=== PATIENT | female | born 1990 | race African-American/Black ===

== ENCOUNTER 2016-12-03 08:33 | Emergency (ER) | payer MEDICAID | END 2016-12-03 10:41 | disposition home or self-care (01) | LOC: D.ER 08:33 | DX: J01.90 Acute sinusitis, unspecified (principal) ==

== ENCOUNTER 2017-09-12 08:12 | Emergency (ER) | payer MEDICAID ==
[2017-09-12 08:54] LABS: APPEARANCE HAZY (CLEAR); BACTERIA MANY /hpf (NONE SEEN); BILIRUBIN NEGATIVE (NEGATIVE); COLOR YELLOW (YELLOW); GLUCOSE NEGATIVE (NEGATIVE); KETONE NEGATIVE (NEGATIVE); NITRITE NEGATIVE (NEGATIVE); PROTEIN 3+ mg/dL (NEGATIVE); RED CELLS - URINE 0-5 /hpf (0-5); SPECIFIC GRAVITY 1.015 (1.005-1.020); UROBILINOGEN NORMAL (NORMAL)
[2017-09-12 08:55] LABS: BASOPHILS 0.3 % (0-2); EOSINOPHILS 4.3 % (0-7); HEMATOCRIT 37.3 % (36.0-48.0); HEMOGLOBIN 11.8 g/dL (12-16); LYMPHOCYTES 39.5 % (15-50); MCH 26.8 pg (26.0-34.0); MCHC 31.6 g/dL (31.0-37.0); MCV 84.6 fL (80.0-100.0); MEAN PLATELET VOLUME 10.5 fL (7.4-10.4); MONOCYTES 8.4 % (2-11); NEUTROPHILS 47.5 % (40-80); RBC 4.41 10x6/uL (4.00-5.40); RDW 12.9 % (11.5-14.5); WBC 6.8 10x3/uL (4.8-10.8)
[2017-09-12 08:56] LABS: PLATELET COUNT 186 10x3/uL (130-400)
[2017-09-12 09:08] LABS: HCG URINE NEGATIVE (NEGATIVE)
[2017-09-12 09:08] LABS: ALBUMIN 2.3 g/dL (3.4-5.0); ALKALINE PHOSPHATASE 79 U/L (46-116); ALT (SGPT) 15 U/L (10-68); BILIRUBIN - TOTAL 0.12 mg/dL (0.2-1.3); CALC OSMOLALITY 281 mosm/kg (275-300); CALCIUM 8.2 mg/dL (8.5-10.1); CARBON DIOXIDE 31.7 mmol/L (21.0-32.0); CHLORIDE - SERUM 109 mmol/L (98-107); CREATININE - SERUM 0.7 mg/dL (0.6-1.3); GLUCOSE 81 mg/dL (74-106); POTASSIUM - SERUM 4.2 mmol/L (3.5-5.1); PROTEIN - SERUM 7.2 g/dL (6.4-8.2); SODIUM 143 mmol/L (136-145); UREA NITROGEN 7 mg/dL (7-18); eGFR NON AFRICAN AMERICAN > 90 mL/min (90-120)
[2017-09-15 09:17] LABS: CHLAMYDIA TRACHOMATIS, NAA Negative (Negative)
[2017-11-11 15:00] VITALS: BMI 40.8
== END 2017-09-12 10:30 | disposition home or self-care (01) ==
LOC: D.ER 08:12
PROVIDERS: Family Medicine
DX: A59.9 Trichomoniasis, unspecified (principal); S39.012A Strain of muscle, fascia and tendon of lower back, initial encounter; X58.XXXA Exposure to other specified factors, initial encounter; Y93.89 Activity, other specified; Y92.029 Unspecified place in mobile home as the place of occurrence of the external cause

== ENCOUNTER 2017-11-11 05:12 | Inpatient (IN) | payer MEDICAID ==
[~2017-11-11] VITALS: Ht 170.2 cm; Wt 118.2 kg
[2017-11-11 06:00] LABS: BASOPHILS 0.5 % (0-2); EOSINOPHILS 10.4 % (0-7); HEMATOCRIT 35.2 % (36.0-48.0); HEMOGLOBIN 11.4 g/dL (12-16); LYMPHOCYTES 47.9 % (15-50); MCH 26.8 pg (26.0-34.0); MCHC 32.4 g/dL (31.0-37.0); MCV 82.8 fL (80.0-100.0); MEAN PLATELET VOLUME 10.3 fL (7.4-10.4); MONOCYTES 10.9 % (2-11); NEUTROPHILS 30.3 % (40-80); RBC 4.25 10x6/uL (4.00-5.40); RDW 14.3 % (11.5-14.5); WBC 4.1 10x3/uL (4.8-10.8)
[2017-11-11 06:02] LABS: PLATELET COUNT 245 10x3/uL (130-400)
[2017-11-11 06:09] LABS: INR 0.93 (0.85-1.17); PROTIME 12.1 SECONDS (11.6-15.0)
[2017-11-11 06:18] LABS: ALKALINE PHOSPHATASE 56 U/L (46-116); ALT (SGPT) 14 U/L (10-68); CALC OSMOLALITY 282 mosm/kg (275-300); CALCIUM 8.5 mg/dL (8.5-10.1); CARBON DIOXIDE 27.7 mmol/L (21.0-32.0); CHLORIDE - SERUM 109 mmol/L (98-107); CREATININE - SERUM 0.9 mg/dL (0.6-1.3); GLUCOSE 95 mg/dL (74-106); POTASSIUM - SERUM 3.6 mmol/L (3.5-5.1); PROTEIN - SERUM 6.4 g/dL (6.4-8.2); SODIUM 143 mmol/L (136-145); UREA NITROGEN 6 mg/dL (7-18); eGFR NON AFRICAN AMERICAN 80 mL/min (90-120)
[2017-11-11 06:24] LABS: CKMB 0.4 U/L (0.0-3.6); CREATINE KINASE 92 UL (21-215); MAGNESIUM - SERUM 1.7 mg/dL (1.8-2.4); PRO BNP 75 pg/mL (0-125); TROPONIN-I 0.016 ng/mL (0.000-0.060)
[2017-11-11 06:26] LABS: D-DIMER-QUANTITATIVE 19.08 ug/mLFEU (0.20-0.54)
[2017-11-11 07:11] LABS: HCG SERUM NEGATIVE (NEGATIVE)
[2017-11-11 10:05] VITALS: BP 151/101
[2017-11-11 10:35] VITALS: BP 151/101; BMI 40.8
[2017-11-11 12:19] VITALS: BP 145/89
[2017-11-11 15:00] VITALS: Ht 170.2 cm; Wt 118.2 kg
[2017-11-11 15:42] VITALS: BP 158/90
[2017-11-11 20:00] VITALS: BP 138/87
[2017-11-12] VITALS: BP 144/72
[2017-11-12 04:00] VITALS: BP 150/75
[2017-11-12 07:54] VITALS: BP 144/80
[2017-11-12 12:05] VITALS: BP 151/83
[2017-11-12 16:18] VITALS: BP 140/80
[2017-11-12 16:25] LABS: % SATURATION 33 % (15-55); IRON 54 ug/dl (35-150); TOTAL IRON BIND CAPACITY 163 ug/dl (260-445); UNSAT IRON BIND CAPACITY 109 ug/dl (150-375)
[2017-11-12 20:00] VITALS: BP 142/73
[2017-11-13] VITALS: BP 129/75
[2017-11-13 07:25] LABS: FOLATE (FOLIC ACID) - SERUM 6.3 ng/mL (>3.0)
[2017-11-13 08:16] VITALS: BP 143/90
[2017-11-13 12:22] VITALS: BP 137/83
[2017-11-13] MEDS ORDERED: NORVASC10 MG PO (13:36)
[2017-11-13] MEDS ORDERED: ELIQUIS5 MG PO ×2 (13:40→13:41)
[2017-11-18 19:13] LABS: FACTOR II DNA ANALYSIS Negative (())
== END 2017-11-13 14:41 | disposition home or self-care (01) | DRG 176 ==
LOC: D.ER 05:12 → D.MS 10:02
PROVIDERS: Family Medicine; Internal Medicine Hematology & Oncology; Internal Medicine Nephrology
DX: I26.99 Other pulmonary embolism without acute cor pulmonale (principal); Z68.41 Body mass index [BMI] 40.0-44.9, adult; I10 Essential (primary) hypertension; E66.01 Morbid (severe) obesity due to excess calories; Z87.442 Personal history of urinary calculi

== ENCOUNTER → 2017-12-31 08:46 | Outpatient (CLI) | payer MEDICAID ==
[2017-11-11 15:00] VITALS: BMI 40.8
--- NOTE | ~2017-12-31 | EC ---
PATIENT:WINNIE DELANEY DATE OF SERVICE: 12/31/17 SEX: F MEDICAL RECORD: [id number] DATE OF : [birth year] [facility] AGE OF PATIENT: 27 ADMISSION DATE: 12/31/17 REFERRING PHYSICIAN: INTERPRETING PHYSICIAN: DEXTER AL MD ECHOCARDIOGRAM REPORT ECHO CHARGES CLINICAL DIAGNOSIS: ECHOCARDIOGRAPHIC MEASUREMENTS (adult normal given) AC root (d.<3.7cm) cm LV Septum d (<1.2 cm> cm Valve Excursion cm LV Septum (systole) cm Left Atria (s.<4.0cm> cm LVPW d(<1.2cm) cm RV (d.<2.3cm) cm LVPW (sytole) cm LV diastole(<5.6CM) cm MV E-F(>70mm/sec) cm LV systole cm LVOT Diameter cm MV exc.(>10mm) cm Est.ejection fraction (50-75%) % Pericardial Effusion DOPPLER: LVIT cm/sec A cm/sec E cm/sec LA cm/sec RVSP mmHg LVOT cm/sec AOP1/2T m/s Asc. Ao cm/sec RVOT cm/sec RA cm/sec PA cm/sec AV Gradient Peak mmHg AV Mean mmHg AV Area cm MV Gradient Peak mmHg MV Mean mmHg MV Area cm COMMENTS: Cloth Stock Sorter: Phys Assistant: BETTE DATE OF SERVICE: 12/31/2017 PROCEDURE: Echocardiogram. FINDINGS: 1. Left ventricular chamber size is within normal limits. Left ventricular systolic function is normal. Overall ejection fraction estimated at 55%. 2. Left atrium, right atrium and right ventricular chamber sizes are within normal limits. 3. Valvular structures have normal structure and motion. ECHOCARDIOGRAM REPORT [id number] WINNIE DELANEY 4. Doppler interrogation reveals trace mitral regurgitation. No other valvular insufficiency or stenosis. Pulmonary systolic pressure is normal estimated at 20 mmHg. 5. No evidence of pericardial effusion or left ventricular thrombus. TRANSINT:[id number] Voice Confirmation ID: [id number] DOCUMENT ID: [id number] DEXTER AL MD at 1202 CC: PUMA GARCÍA MD [id number] DICTATION DATE: 12/31/17 1203 PLASMA CENTER NURSE: 12/31/17 1217 DEP CLI 12/31/17 [facility] [address] [place] [address]
[~2017-12-31 08:46] MED LIST: ALEVE220 MG PO; CIPRO500 MG PO; ELIQUIS5 MG PO; HCTZ25 MG PO; HYDROCHLOROTHIA25 MG PO; K-DUR20 MEQ PO; NORVASC10 MG PO
== END | disposition home or self-care (01) ==
LOC: D.ECHO 08:46
DX: I26.99 Other pulmonary embolism without acute cor pulmonale (principal)

== ENCOUNTER 2018-01-28 16:44 | Inpatient (IN) | payer MEDICAID ==
[~2018-01-28] VITALS: Ht 170.2 cm; Wt 129.5 kg
--- NOTE | ~2018-01-28 | DS ---
PATIENT:WINNIE DELANEY :89 MEDICAL RECORD: [id number] DISCHARGE SUMMARY ADMISSION DATE: 01/28/18 DISCHARGE DATE: 01/30/18 DATE OF ADMISSION: 01/28/2018 DATE OF DISCHARGE: 01/30/2018. ADMISSION DIAGNOSES: Headache, chronic pulmonary emboli, hypertension. DISCHARGE DIAGNOSES: Hypertension, chronic pulmonary emboli, headache resolved. HOSPITAL COURSE: The patient was admitted to the Emergency Room unassigned medicine. She had pulmonary emboli diagnosed in October, had extensive workup including lower extremity Dopplers, CTA of the chest, was started on Eliquis, was evaluated inpatient by Dr. Henderson, hematology and then is followed outpatient by Dr. Henderson as well, has a followup appointment with Dr. Henderson, is on Eliquis and has plenty of these medications at home. The patient had repeat imaging done in the Emergency Room of the CTA, which showed questionable nonocclusive filling defect of left lower lobe. Venous Dopplers were again negative for DVT. The patient is asymptomatic this morning, anxious to go home. and children are present, agree with discharge, have adjusted medications for her blood pressure. She will follow up with her primary care physician at [facility] and she will keep her followup appointment with Dr. Henderson. She did have a benign-appearing enlarged thyroid gland, which showed upon CTA with recommendations for outpatient evaluation. She will follow up with her PCP for this. PHYSICAL EXAMINATION: VITAL SIGNS: On discharge, temperature 97.9, blood pressure is 131/80, heart rate 74, respirations 16, O2 sats 99% on room air. GENERAL: Alert, oriented, no acute distress. HEENT: Normocephalic, atraumatic. Eyes: Pupils equal, round, reactive. Ears: Canals patent. HEART: Regular rate and rhythm. LUNGS: Clear. Breathing is nonlabored. ABDOMEN: Soft. EXTREMITIES: Present times 4. Trace lower extremity edema. NEUROLOGIC: Cranial nerves II through XII intact. No focal deficits. SKIN: Warm and dry. No rash. LABORATORY DATA: CBC: White count 4.1, hemoglobin 10.7, hematocrit 33.5, platelets 165. Chemistry shows a sodium of 143, potassium 3.5, chloride 108, bicarb 25.1, creatinine 0.9, glucose 87. The patient is anxious to go home. DISCHARGE MEDICATIONS: Per med rec. DISCHARGE INSTRUCTIONS: Will follow up with PCP at [facility]. Will follow up with Dr. Henderson, her options trader. Return to the ER with worsening symptoms. TRANSINT:[id number] Voice Confirmation ID: [id number] DOCUMENT ID: [id number] DISCHARGE SUMMARY REPORT [id number] WINNIE DELANEY ROBERT DO at 0805 CC: [id number] DICTATION DATE: 01/30/18 1415 BRAILLE CODER: 01/31/18 1126 DIS IN 01/30/18 [id number] [place] [address]
--- NOTE | ~2018-01-28 | HP ---
PATIENT: WINNIE DELANEY MEDICAL RECORD: [id number] ACCOUNT: [id number] LOCATION:D.MS [id number] : [birth year] ADMISSION DATE: 01/28/18 HISTORY AND PHYSICAL EXAMINATION HISTORY OF PRESENT ILLNESS: A 27-year-old -English female who presented to the Emergency Room with complaint of headache. Past medical history is significant for pulmonary emboli. She had extensive workup with admission in October as a unassigned medicine, showed left lower lobe pulmonary emboli, had hematology evaluation with Dr. Henderson. The patient was started on anticoagulation treatment, changed to p.o. Eliquis. She admits compliance with the Eliquis, has been following up with Dr. Henderson as an outpatient and was advised to stay on the Eliquis indefinitely. She is also on amlodipine for high blood pressure. She denies any illicit drug use, although her urine drug screen positive for opiates. She states she has an appointment scheduled with the physician at [facility], but she has not established care there yet. She is admitted to the Emergency Room as unassigned medicine. Her chief complaint on admission was leg swelling, which she has noticed more pronounced since starting the amlodipine with her last admission. REVIEW OF SYSTEMS: CONSTITUTIONAL: No significant change in weight or appetite. HEENT: No cephalgia, visual changes, tinnitus, epistaxis, or dysphagia. CARDIOVASCULAR: Denies chest pain or palpitations. PULMONARY: Denies hemoptysis. Denies night sweats. Denies shortness of breath. She does have a history of the pulmonary emboli, but denies any present symptoms. GASTROINTESTINAL: Denies hematemesis, hematochezia, or melena. GENITOURINARY: Denies dysuria. MUSCULOSKELETAL: Admits bilateral lower extremity edema since starting the amlodipine. ALLERGIES: No known drug allergies. She had echocardiogram with no significant abnormalities with her admission in late October. She had lower extremity ultrasounds as well with no findings. PHYSICAL EXAMINATION: VITAL SIGNS: Temp 98.2, blood pressure 144/90, heart rate 75, respirations 16, O2 sats 99% on room air. GENERAL: Alert and oriented, no present distress. HEART: Regular rate and rhythm. No S3, S4. No rub. LUNGS: Clear to auscultation bilaterally. Breathing is nonlabored. ABDOMEN: Soft, obese, nontender. Bowel sounds all 4 quadrants. EXTREMITIES: Present times 4, bilateral lower extremity edema. NEUROLOGIC: Cranial nerves II through XII intact. No focal deficits. SKIN: Warm and dry. No rash. LABORATORY DATA AND DIAGNOSTIC STUDIES: EKG shows sinus rhythm, rate of 87, nonspecific T-wave changes. Urinalysis yellow, clear, 2+ protein, trace blood, negative leukocyte esterase, and negative for urine bacteria. Urine drug screen positive for opiates. CBC: White count 5.7, hemoglobin 11.5, hematocrit 34.9, platelets 153. PT is 12.9, INR is 1.01. D-dimer is elevated at 20. Chemistry shows sodium of 146, potassium 3.5, chloride 114, bicarb 26.7, BUN 10, and creatinine 1.0. AST 19, ALT 10. Troponin less than 0.017, CK-MB 1.4. ProBNP HISTORY AND PHYSICAL [id number] WINNIE DELANEY essentially normal at 126. Lower extremity ultrasound, no evidence of DVT. Repeat CTA chest PE Protocol, questionable nonocclusive filling defect seen in left lower lobe and medial basilar segmental pulmonary arteries, possible enlargement of the thyroid gland, recommendation for outpatient ultrasound. ASSESSMENT AND PLAN: 1. Chronic pulmonary emboli. The patient has already been worked up and treated, workup repeated with ER admission. We would discontinue the Lovenox. Continue the Eliquis as prescribed and as recommended by hematology. She had a normal echocardiogram with last admission. 2. Hypertension. Continue amlodipine, add hydrochlorothiazide. Check chemistry in a.m. May need to add additional potassium. 3. Increase activity. The patient has no changes overnight. We will plan for discharge in a.m. with instructions to follow up with her gravel wheeler, Dr. Henderson and her scheduled primary care physician at [facility]. TRANSINT:[id number] Voice Confirmation ID: [id number] DOCUMENT ID: [id number] FRAN INFANTE DO at 1341 CC: [id number] DICTATION DATE: 01/29/18 1237 AREA CLEANER: 01/29/18 1303 ADM IN [facility] [address] [place] [address]
[~2018-01-28 16:44] MED LIST changes: -ALEVE220 MG PO; -CIPRO500 MG PO; -HCTZ25 MG PO; -HYDROCHLOROTHIA25 MG PO; -K-DUR20 MEQ PO
[2018-01-28 17:42] LABS: BASOPHILS 0.4 % (0-2); EOSINOPHILS 3.7 % (0-7); HEMATOCRIT 34.9 % (36.0-48.0); HEMOGLOBIN 11.5 g/dL (12-16); IMMATURE GRANULOCYTES 0.2 % (0-5); LYMPHOCYTES 48.9 % (15-50); MCH 27.4 pg (26.0-34.0); MCV 83.3 fL (80.0-100.0); MEAN PLATELET VOLUME 10.9 fL (7.4-10.4); MONOCYTES 8.5 % (2-11); NEUTROPHILS 38.3 % (40-80); RBC 4.19 10x6/uL (4.00-5.40); RDW 14.1 % (11.5-14.5); WBC 5.7 10x3/uL (4.8-10.8)
[2018-01-28 17:47] LABS: PLATELET COUNT 153 10x3/uL (130-400)
[2018-01-28 17:56] LABS: APTT 29.9 SECONDS (22.8-39.4); INR 1.01 (0.85-1.17); PROTIME 12.9 SECONDS (11.6-15.0)
[2018-01-28 17:58] LABS: ALBUMIN 1.3 g/dL (3.4-5.0); ALKALINE PHOSPHATASE 52 U/L (46-116); ALT (SGPT) 10 U/L (10-68); CALC OSMOLALITY 289 mosm/kg (275-300); CALCIUM 7.6 mg/dL (8.5-10.1); CARBON DIOXIDE 26.7 mmol/L (21.0-32.0); CHLORIDE - SERUM 114 mmol/L (98-107); GLUCOSE 92 mg/dL (74-106); POTASSIUM - SERUM 3.5 mmol/L (3.5-5.1); SODIUM 146 mmol/L (136-145); UREA NITROGEN 10 mg/dL (7-18); eGFR NON AFRICAN AMERICAN 70 mL/min (90-120)
[2018-01-28 18:10] LABS: CKMB 1.4 U/L (0.0-3.6); CREATINE KINASE 137 UL (21-215); PRO BNP 126 pg/mL (0-125); TROPONIN-I < 0.017 ng/mL (0.000-0.060)
[2018-01-28 18:36] LABS: D-DIMER-QUANTITATIVE > 20.00 ug/mLFEU (0.20-0.54)
[2018-01-28 23:15] VITALS: BP 125/86; Ht 170.2 cm; Wt 129.5 kg
[2018-01-28] MEDS ORDERED: ALEVE220 MG PO (23:15)
[2018-01-28 23:29] LABS: APPEARANCE CLEAR (CLEAR); BACTERIA NONE SEEN /hpf (NONE SEEN); BILIRUBIN NEGATIVE (NEGATIVE); COLOR YELLOW (YELLOW); EPITHELIAL CELLS NSEEN /hpf (0-5); GLUCOSE NEGATIVE (NEGATIVE); KETONE NEGATIVE (NEGATIVE); NITRITE NEGATIVE (NEGATIVE); PROTEIN 2+ mg/dL (NEGATIVE); UROBILINOGEN NORMAL (NORMAL); WHITE CELLS - URINE 0-5 /hpf (0-5)
[2018-01-28 23:35] LABS: UDS - AMPHET NEGATIVE QUAL (NEGATIVE); UDS - BARB NEGATIVE QUAL (NEGATIVE); UDS - BENZO NEGATIVE QUAL (NEGATIVE); UDS - COCAINE NEGATIVE QUAL (NEGATIVE); UDS - OPIATE POSITIVE QUAL (NEGATIVE); UDS - PCP NEGATIVE QUAL (NEGATIVE); UDS - THC NEGATIVE QUAL (NEGATIVE)
[2018-01-29] VITALS: BP 135/68
[2018-01-29 04:00] VITALS: BP 127/82
[2018-01-29 08:00] VITALS: BP 123/76
[2018-01-29 11:59] VITALS: BP 144/90
[2018-01-29 16:16] VITALS: BP 129/76
[2018-01-29 20:00] VITALS: BP 154/80
[2018-01-30] VITALS: BP 136/86
[2018-01-30 04:00] VITALS: BP 148/71
[2018-01-30 05:01] LABS: HEMATOCRIT 33.5 % (36.0-48.0); HEMOGLOBIN 10.7 g/dL (12-16); MCH 26.9 pg (26.0-34.0); MCHC 31.9 g/dL (31.0-37.0); MCV 84.2 fL (80.0-100.0); MEAN PLATELET VOLUME 10.9 fL (7.4-10.4); PLATELET COUNT 165 10x3/uL (130-400); RBC 3.98 10x6/uL (4.00-5.40); RDW 14.2 % (11.5-14.5)
[2018-01-30 05:02] LABS: WBC 4.1 10x3/uL (4.8-10.8)
[2018-01-30 05:10] LABS: EOSINOPHILS 6 % (0-7); LYMPHOCYTES 59 % (15-50); MONOCYTES 8 % (2-11); NEUTROPHILS 22 % (40-80); PLATELET ESTIMATE NORMAL
[2018-01-30 05:15] LABS: CALC OSMOLALITY 283 mosm/kg (275-300); CALCIUM 7.4 mg/dL (8.5-10.1); CARBON DIOXIDE 25.1 mmol/L (21.0-32.0); CHLORIDE - SERUM 108 mmol/L (98-107); CREATININE - SERUM 0.9 mg/dL (0.6-1.3); GLUCOSE 87 mg/dL (74-106); POTASSIUM - SERUM 3.5 mmol/L (3.5-5.1); SODIUM 143 mmol/L (136-145); UREA NITROGEN 13 mg/dL (7-18); eGFR NON AFRICAN AMERICAN 80 mL/min (90-120)
[2018-01-30 08:25] VITALS: BP 131/80
[2018-01-30 11:53] VITALS: BP 135/83
[2018-01-30] MEDS ORDERED: K-DUR20 MEQ PO (14:07)
[2018-01-30] MEDS ORDERED: HCTZ25 MG PO (14:07)
== END 2018-01-30 16:55 | disposition home or self-care (01) | DRG 103 ==
LOC: D.ER 16:44 → D.MS 21:31 → D.EDHOLD 21:31 → D.MS 23:06
PROVIDERS: Family Medicine; Physician Assistant Medical
DX: R51 Headache (principal); I27.82 Chronic pulmonary embolism; I10 Essential (primary) hypertension; Z79.01 Long term (current) use of anticoagulants; E04.9 Nontoxic goiter, unspecified; R60.9 Edema, unspecified

== ENCOUNTER 2018-02-08 09:16 | Inpatient (IN) | payer MEDICAID ==
[~2018-02-08] VITALS: Ht 170.2 cm; Wt 127.5 kg
[~2018-02-08 09:16] MED LIST changes: +ALEVE220 MG PO; +HCTZ25 MG PO; +K-DUR20 MEQ PO
[2018-02-08 10:04] LABS: BASOPHILS 0.2 % (0-2); HEMOGLOBIN 12.3 g/dL (12-16); IMMATURE GRANULOCYTES 0.2 % (0-5); LYMPHOCYTES 45.3 % (15-50); MCH 27.8 pg (26.0-34.0); MCHC 33.2 g/dL (31.0-37.0); MCV 83.7 fL (80.0-100.0); MONOCYTES 10.2 % (2-11); NEUTROPHILS 39.1 % (40-80); RBC 4.42 10x6/uL (4.00-5.40); RDW 13.8 % (11.5-14.5); WBC 4.6 10x3/uL (4.8-10.8)
[2018-02-08 10:05] LABS: INR 0.86 (0.85-1.17); PLATELET COUNT 217 10x3/uL (130-400); PROTIME 11.4 SECONDS (11.6-15.0)
[2018-02-08 10:08] LABS: APTT 25.9 SECONDS (22.8-39.4)
[2018-02-08 10:21] LABS: D-DIMER-QUANTITATIVE 10.1 ug/mLFEU (0.20-0.54)
[2018-02-08 10:31] LABS: ALBUMIN 1.5 g/dL (3.4-5.0); ALKALINE PHOSPHATASE 59 U/L (46-116); ALT (SGPT) 13 U/L (10-68); AMYLASE - SERUM 197 U/L (25-115); CALC OSMOLALITY 278 mosm/kg (275-300); CALCIUM 7.7 mg/dL (8.5-10.1); CHLORIDE - SERUM 108 mmol/L (98-107); CKMB 0.9 U/L (0.0-3.6); CREATINE KINASE 143 UL (21-215); CREATININE - SERUM 0.7 mg/dL (0.6-1.3); GLUCOSE 93 mg/dL (74-106); LIPASE 93 U/L (73-393); POTASSIUM - SERUM 4.4 mmol/L (3.5-5.1); SODIUM 140 mmol/L (136-145); TROPONIN-I < 0.017 ng/mL (0.000-0.060); UREA NITROGEN 12 mg/dL (7-18); eGFR NON AFRICAN AMERICAN > 90 mL/min (90-120)
[2018-02-08 14:41] LABS: APPEARANCE CLOUDY (CLEAR); COLOR YELLOW (YELLOW); SPECIFIC GRAVITY 1.005 (1.005-1.020)
[2018-02-08 14:42] LABS: BILIRUBIN NEGATIVE (NEGATIVE); GLUCOSE NEGATIVE (NEGATIVE); KETONE NEGATIVE (NEGATIVE); NITRITE NEGATIVE (NEGATIVE); PROTEIN 3+ mg/dL (NEGATIVE); UROBILINOGEN NORMAL (NORMAL); WHITE CELLS - URINE 25-50 /hpf (0-5)
[2018-02-08 14:43] LABS: BACTERIA MANY /hpf (NONE SEEN); MUCUS <1+ /lpf (NONE SEEN)
[2018-02-08 16:59] LABS: CKMB 0.4 U/L (0.0-3.6); CREATINE KINASE 86 UL (21-215); PRO BNP 25 pg/mL (0-125); TROPONIN-I < 0.017 ng/mL (0.000-0.060)
[2018-02-08] MEDS ORDERED: HYDROCHLOROTHIA25 MG PO (20:04)
[2018-02-08 20:23] LABS: CREATININE - SERUM 1.1 mg/dL (0.6-1.3)
[2018-02-08 21:03] VITALS: BP 132/74
[2018-02-08 22:32] LABS: CKMB 0.7 U/L (0.0-3.6); CREATINE KINASE 92 UL (21-215); TROPONIN-I < 0.017 ng/mL (0.000-0.060)
[2018-02-09] VITALS (7 sets, daily range): BP systolic 98–160; BP diastolic 52–89; Ht 170.2 cm; Wt 127.5 kg
[2018-02-09 05:04] LABS: BASOPHILS 0.2 % (0-2); EOSINOPHILS 5.4 % (0-7); HEMATOCRIT 35.8 % (36.0-48.0); HEMOGLOBIN 11.6 g/dL (12-16); IMMATURE GRANULOCYTES 0.2 % (0-5); LYMPHOCYTES 49.1 % (15-50); MCH 27.3 pg (26.0-34.0); MCHC 32.4 g/dL (31.0-37.0); MCV 84.2 fL (80.0-100.0); MEAN PLATELET VOLUME 11.1 fL (7.4-10.4); MONOCYTES 11.3 % (2-11); NEUTROPHILS 33.8 % (40-80); PLATELET COUNT 218 10x3/uL (130-400); RBC 4.25 10x6/uL (4.00-5.40)
[2018-02-09 05:39] LABS: ALBUMIN 1.4 g/dL (3.4-5.0); ALKALINE PHOSPHATASE 61 U/L (46-116); ALT (SGPT) 13 U/L (10-68); CALC OSMOLALITY 277 mosm/kg (275-300); CALCIUM 7.5 mg/dL (8.5-10.1); CHLORIDE - SERUM 108 mmol/L (98-107); CKMB 0.6 U/L (0.0-3.6); CREATINE KINASE 79 UL (21-215); CREATININE - SERUM 1.1 mg/dL (0.6-1.3); GLUCOSE 88 mg/dL (74-106); PROTEIN - SERUM 5.6 g/dL (6.4-8.2); SODIUM 139 mmol/L (136-145); TROPONIN-I < 0.017 ng/mL (0.000-0.060); UREA NITROGEN 15 mg/dL (7-18); eGFR NON AFRICAN AMERICAN 63 mL/min (90-120)
[2018-02-10 01:59] VITALS: BP 130/82
[2018-02-10 05:57] VITALS: BP 134/94
[2018-02-10 06:09] LABS: BASOPHILS 0.4 % (0-2); HEMATOCRIT 39.8 % (36.0-48.0); IMMATURE GRANULOCYTES 0.2 % (0-5); LYMPHOCYTES 48.2 % (15-50); MCH 27.8 pg (26.0-34.0); MCHC 32.7 g/dL (31.0-37.0); MCV 85.2 fL (80.0-100.0); MONOCYTES 7.7 % (2-11); NEUTROPHILS 37.5 % (40-80); PLATELET COUNT 211 10x3/uL (130-400); RBC 4.67 10x6/uL (4.00-5.40); WBC 5.7 10x3/uL (4.8-10.8)
[2018-02-10 06:29] LABS: ALBUMIN 1.6 g/dL (3.4-5.0); ANION GAP 14.4 mmol/L (8-16); BILIRUBIN - TOTAL 0.2 mg/dL (0.2-1.3); CALCIUM 7.7 mg/dL (8.5-10.1); CARBON DIOXIDE 24.9 mmol/L (21.0-32.0); POTASSIUM - SERUM 4.3 mmol/L (3.5-5.1); PROTEIN - SERUM 5.6 g/dL (6.4-8.2)
[2018-02-10 07:00] VITALS: BP 134/76
[2018-02-10] MEDS ORDERED: CIPRO500 MG PO (13:15)
[2018-02-10 13:38] VITALS: BP 129/85
== END 2018-02-10 15:36 | disposition home or self-care (01) | DRG 690 ==
LOC: D.ER 09:16 → D.EDHOLD 14:17 → D.M2 14:17
PROVIDERS: Family Medicine
DX: N10 Acute pyelonephritis (principal); Z68.41 Body mass index [BMI] 40.0-44.9, adult; E66.01 Morbid (severe) obesity due to excess calories; E86.0 Dehydration; Z79.01 Long term (current) use of anticoagulants; E83.51 Hypocalcemia; I34.0 Nonrheumatic mitral (valve) insufficiency; I10 Essential (primary) hypertension; Z86.718 Personal history of other venous thrombosis and embolism; Z86.711 Personal history of pulmonary embolism

== ENCOUNTER → 2018-04-07 11:59 | Outpatient (CLI) | payer MEDICAID ==
[2018-02-09 17:41] VITALS: BMI 43.5
[~2018-04-07 11:59] MED LIST changes: +CIPRO500 MG PO; +HYDROCHLOROTHIA25 MG PO
== END | disposition home or self-care (01) ==
LOC: D.CT 11:59
DX: R79.1 Abnormal coagulation profile (principal)

== ENCOUNTER 2018-04-11 18:43 | Emergency (ER) | payer MEDICAID ==
[~2018-04-11] VITALS: Ht 170.2 cm; Wt 128.6 kg
[2018-04-11 19:00] VITALS: Ht 170.2 cm; Wt 128.6 kg
[2018-04-11 21:14] LABS: BASOPHILS 0.2 % (0-2); EOSINOPHILS 2.6 % (0-7); HEMATOCRIT 32.9 % (36.0-48.0); HEMOGLOBIN 10.7 g/dL (12-16); IMMATURE GRANULOCYTES 0.2 % (0-5); LYMPHOCYTES 34.5 % (15-50); MCH 27.2 pg (26.0-34.0); MCHC 32.5 g/dL (31.0-37.0); MCV 83.5 fL (80.0-100.0); MEAN PLATELET VOLUME 10.6 fL (7.4-10.4); NEUTROPHILS 55.5 % (40-80); RBC 3.94 10x6/uL (4.00-5.40); RDW 13.4 % (11.5-14.5); WBC 6.4 10x3/uL (4.8-10.8)
[2018-04-11 21:15] LABS: PLATELET COUNT 256 10x3/uL (130-400)
[2018-04-11 21:26] LABS: INR 0.92 (0.85-1.17)
[2018-04-11 21:42] LABS: D-DIMER-QUANTITATIVE 8.47 ug/mLFEU (0.20-0.54)
[2018-04-11 21:45] LABS: ALBUMIN 1.3 g/dL (3.4-5.0); ALKALINE PHOSPHATASE 58 U/L (46-116); ALT (SGPT) 13 U/L (10-68); BILIRUBIN - TOTAL 0.12 mg/dL (0.2-1.3); CALC OSMOLALITY 285 mosm/kg (275-300); CALCIUM 8.3 mg/dL (8.5-10.1); CHLORIDE - SERUM 109 mmol/L (98-107); GLUCOSE 88 mg/dL (74-106); POTASSIUM - SERUM 3.6 mmol/L (3.5-5.1); PROTEIN - SERUM 5.4 g/dL (6.4-8.2); SODIUM 143 mmol/L (136-145); UREA NITROGEN 17 mg/dL (7-18); eGFR NON AFRICAN AMERICAN 70 mL/min (90-120)
[2018-04-11 21:47] LABS: CKMB 1.3 U/L (0.0-3.6); CREATINE KINASE 221 UL (21-215); PRO BNP 51 pg/mL (0-125)
[2018-04-12 00:37] VITALS: BP 137/83
== END 2018-04-12 00:41 | disposition home or self-care (01) ==
LOC: D.ER 18:43
PROVIDERS: Family Medicine
DX: R79.1 Abnormal coagulation profile (principal); E01.0 Iodine-deficiency related diffuse (endemic) goiter; I10 Essential (primary) hypertension; R07.9 Chest pain, unspecified

== ENCOUNTER 2018-06-24 09:37 | Emergency (ER) | payer MEDICAID ==
[~2018-06-24] VITALS: Ht 170.2 cm; Wt 126.4 kg
[2018-06-24 09:47] VITALS: Ht 170.2 cm; Wt 126.4 kg
[2018-06-24 10:31] LABS: HCG URINE NEGATIVE (NEGATIVE)
[2018-06-24 10:36] LABS: HEMATOCRIT 32.9 % (36.0-48.0); HEMOGLOBIN 10.7 g/dL (12-16); MCH 26.6 pg (26.0-34.0); MCHC 32.5 g/dL (31.0-37.0); MCV 81.8 fL (80.0-100.0); MEAN PLATELET VOLUME 10.9 fL (7.4-10.4); NEUTROPHILS 37.2 % (40-80); RBC 4.02 10x6/uL (4.00-5.40); RDW 13.3 % (11.5-14.5)
[2018-06-24 10:37] LABS: APPEARANCE CLOUDY (CLEAR); COLOR YELLOW (YELLOW)
[2018-06-24 10:38] LABS: BACTERIA MODERATE /hpf (NONE SEEN); BILIRUBIN NEGATIVE (NEGATIVE); EPITHELIAL CELLS 0-5 /hpf (0-5); GLUCOSE NEGATIVE (NEGATIVE); GRANULAR CAST RARE /lpf (NONE SEEN); HYALINE CAST 0-5 /lpf (NONE SEEN); KETONE NEGATIVE (NEGATIVE); MUCUS <1+ /lpf (NONE SEEN); NITRITE NEGATIVE (NEGATIVE); PROTEIN 3+ mg/dL (NEGATIVE); UROBILINOGEN NORMAL (NORMAL); WHITE CELLS - URINE 0-5 /hpf (0-5)
[2018-06-24 10:51] LABS: ALBUMIN 0.9 g/dL (3.4-5.0); ANION GAP 7.3 mmol/L (8-16); CALCIUM 7.2 mg/dL (8.5-10.1); CARBON DIOXIDE 26.8 mmol/L (21.0-32.0); CREATININE - SERUM 1.2 mg/dL (0.6-1.3); POTASSIUM - SERUM 4.1 mmol/L (3.5-5.1); PROTEIN - SERUM 5.1 g/dL (6.4-8.2)
[2018-06-24 10:52] LABS: BILIRUBIN - TOTAL 0.03 mg/dL (0.2-1.3)
[2018-06-24 11:08] LABS: PLATELET COUNT 196 10x3/uL (130-400)
[2018-06-24] MEDS ORDERED: ULTRAM50 MG PO (14:17)
[2018-06-24] MEDS ORDERED: ZOFRAN8 MG PO (14:19)
[2018-06-24 14:54] LABS: CREATININE - URINE 213.3 mg/dL (30-125); PRO/CRE RATIO URINE 14.6 mg/g; PROTEIN - URINE 3117.9 mg/dL (0.0-11.9)
[2018-06-24 15:15] VITALS: BP 120/70
== END 2018-06-24 15:16 | disposition home or self-care (01) ==
LOC: D.ER 09:37
PROVIDERS: Family Medicine
DX: R11.2 Nausea with vomiting, unspecified (principal); R10.13 Epigastric pain; Z86.718 Personal history of other venous thrombosis and embolism; I10 Essential (primary) hypertension; E88.09 Other disorders of plasma-protein metabolism, not elsewhere classified; R80.9 Proteinuria, unspecified

== ENCOUNTER 2018-07-04 20:29 | Emergency (ER) | payer SELFPAY ==
[~2018-07-04] VITALS: Ht 170.2 cm; Wt 124.5 kg
[~2018-07-04 20:29] MED LIST changes: +ULTRAM50 MG PO; +ZOFRAN8 MG PO
[2018-07-04 20:33] VITALS: Ht 170.2 cm; Wt 124.5 kg
[2018-07-04 21:18] LABS: BASOPHILS 0.2 % (0-2); EOSINOPHILS 3.7 % (0-7); HEMATOCRIT 29.5 % (36.0-48.0); HEMOGLOBIN 9.5 g/dL (12-16); LYMPHOCYTES 44.8 % (15-50); MCH 26.2 pg (26.0-34.0); MCHC 32.2 g/dL (31.0-37.0); MCV 81.3 fL (80.0-100.0); MONOCYTES 8.1 % (2-11); NEUTROPHILS 43.2 % (40-80); PLATELET COUNT 197 10x3/uL (130-400); RBC 3.63 10x6/uL (4.00-5.40); RDW 13.8 % (11.5-14.5); WBC 5.2 10x3/uL (4.8-10.8)
[2018-07-04 21:38] LABS: ALBUMIN 1.2 g/dL (3.4-5.0); ALKALINE PHOSPHATASE 62 U/L (46-116); ALT (SGPT) 21 U/L (10-68); CALC OSMOLALITY 287 mosm/kg (275-300); CALCIUM 7.2 mg/dL (8.5-10.1); CARBON DIOXIDE 26.6 mmol/L (21.0-32.0); CHLORIDE - SERUM 111 mmol/L (98-107); CREATININE - SERUM 1.2 mg/dL (0.6-1.3); GLUCOSE 83 mg/dL (74-106); POTASSIUM - SERUM 3.8 mmol/L (3.5-5.1); PROTEIN - SERUM 5.2 g/dL (6.4-8.2); SODIUM 144 mmol/L (136-145); UREA NITROGEN 19 mg/dL (7-18); eGFR NON AFRICAN AMERICAN 57 mL/min (90-120)
[2018-07-04 21:43] LABS: BILIRUBIN - TOTAL 0.04 mg/dL (0.2-1.3)
[2018-07-04 21:47] LABS: APPEARANCE CLEAR (CLEAR); BILIRUBIN NEGATIVE (NEGATIVE); COLOR YELLOW (YELLOW); GLUCOSE NEGATIVE (NEGATIVE); KETONE NEGATIVE (NEGATIVE); NITRITE NEGATIVE (NEGATIVE); PROTEIN 1+ mg/dL (NEGATIVE); UROBILINOGEN NORMAL (NORMAL)
[2018-07-04 21:48] LABS: BACTERIA FEW /hpf (NONE SEEN); EPITHELIAL CELLS OCC /hpf (0-5); RED CELLS - URINE 0-5 /hpf (0-5); WHITE CELLS - URINE 0-5 /hpf (0-5)
[2018-07-04 21:56] LABS: CREATINE KINASE 243 UL (21-215); MAGNESIUM - SERUM 1.6 mg/dL (1.8-2.4)
[2018-07-04 21:59] LABS: CKMB 1.5 U/L (0.0-3.6)
[2018-07-04 22:52] VITALS: BP 168/87
== END 2018-07-04 22:55 | disposition home or self-care (01) ==
LOC: D.ER 20:29
PROVIDERS: Family Medicine
DX: E11.21 Type 2 diabetes mellitus with diabetic nephropathy (principal); R14.0 Abdominal distension (gaseous); I10 Essential (primary) hypertension

== ENCOUNTER 2018-09-18 12:49 | Inpatient (IN) | payer MEDICAID ==
[~2018-09-18] VITALS: Ht 170.2 cm; Wt 122.7 kg
--- NOTE | ~2018-09-18 | EC ---
PATIENT:WINNIE DELANEY DATE OF SERVICE: 09/19/18 SEX: F MEDICAL RECORD: [id number] DATE OF : [birth year] LOCATION:D. D.212 AGE OF PATIENT: 27 ADMISSION DATE: 09/19/18 REFERRING PHYSICIAN: INTERPRETING PHYSICIAN: DEXTER MIRANDA MD ECHOCARDIOGRAM REPORT ECHO CHARGES 4 ECHO COMPLETE Date: 09/20/18 CLINICAL DIAGNOSIS: R/O PUL HTN ECHOCARDIOGRAPHIC MEASUREMENTS (adult normal given) AC root (d.<3.7cm) 3.2 cm LV Septum d (<1.2 cm> 1.2 cm Valve Excursion 2.2 cm LV Septum (systole) 1.5 cm Left Atria (s.<4.0cm> 4.3 cm LVPW d(<1.2cm) 0.7 cm RV (d.<2.3cm) 3.6 cm LVPW (sytole) 0.8 cm LV diastole(<5.6CM) 4.6 cm MV E-F(>70mm/sec) cm LV systole 2.7 cm LVOT Diameter 2.3 cm MV exc.(>10mm) cm Est.ejection fraction (50-75%) % DOPPLER: LVIT cm/sec A 64 cm/sec E 83 cm/sec LA cm/sec RVSP 25.7 mmHg LVOT 133 cm/sec AOP1/2T m/s Asc. Ao 135 cm/sec RVOT 62 cm/sec RA cm/sec PA 66 cm/sec AV Gradient Peak 7.3 mmHg AV Mean 4.5 mmHg AV Area 3.6 cm MV Gradient Peak 4.3 mmHg MV Mean 2.1 mmHg MV Area cm COMMENTS: Welcome Desk Agent: Leia SALDANA Sap Data Architect: 1 Dr. Miranda TAPE# PACS Pericardial Effusion N DATE OF SERVICE: 09/20/2018 PROCEDURE: Echocardiogram. FINDINGS: 1. Left ventricular chamber size is within normal limits. Left ventricular systolic function is normal. Overall ejection fraction estimated at 60% to 65%. 2. Left atrium, right atrium, and right ventricle chamber sizes are mildly dilated. Left atrium measures 4.3 cm. 3. Valvular structures have normal structure and motion. ECHOCARDIOGRAM REPORT [id number] WINNIE DELANEY 4. Doppler interrogation reveals only trace tricuspid regurgitation, no other valvular insufficiency or stenosis. 5. No evidence of pericardial effusion or left ventricular thrombus. TRANSINT:[id number] Voice Confirmation ID: [id number] DOCUMENT ID: [id number] DEXTER MIRANDA MD at 1718 CC: [id number] DICTATION DATE: 09/20/18 1629 DIRECTOR DIGITAL SALES: 09/20/18 2153 ADM IN [facility] [address] [id number]
--- NOTE | ~2018-09-18 | CN ---
PATIENT NAME:WINNIE SORENSEN MEDICAL RECORD: [id number] : 89 LOCATION:D.M2 D.2127 ADMIT DATE: 09/19/18 ACCOUNT: [id number] CONSULTING PHYSICIAN: EDI HASSAN MD REFERRING PHYSICIAN: ERVIN LU MD DATE OF CONSULTATION: 09/19/2018 CONSULT REQUESTING PHYSICIAN: Brijesh Mei MD REASON FOR CONSULTATION: Address anticoagulation before the kidney biopsy. HISTORY OF PRESENT ILLNESS: Ms. Sorensen is a 27-year-old -C[place] female who has a history of pulmonary embolism times 3 in the past. She is on Eliquis. Now, the patient was admitted with nephrotic syndrome and scheduled renal biopsy. Also, the patient noted that she has likely got lightheaded and she did not pass out, but she was nearly going to blackout. REVIEW OF SYSTEMS: As in history of present illness. PAST MEDICAL HISTORY: 1. Pulmonary embolism times 3. 2. Hypertension. 3. Hypothyroidism. 4. History of kidney stone. ALLERGIES: No known drug allergy. MEDICATIONS: She is on Eliquis 5 mg per oral b.i.d. PERSONAL AND SOCIAL HISTORY: The patient is a nonsmoker, nondrinker. FAMILY HISTORY: Noncontributory. PHYSICAL EXAMINATION: GENERAL: Now, the patient is lying comfortably. She is not in acute distress. VITAL SIGNS: The blood pressure 142/86, pulse is 85, respirations 20, temperature 98.6, SPO2 is 99% on room air. HEENT: Conjunctivae are pink. Sclerae are not icteric. NECK: Supple, no JVD. CHEST: The chest excursion is minimal on both sides. No wheeze, no rales. HEART: Rhythm regular, normal sound, no murmur. ABDOMEN: Soft, bowel sounds present. No hepatosplenomegaly. RECTAL: Deferred. EXTREMITIES: No cyanosis, no clubbing, no pedal edema. CENTRAL NERVOUS SYSTEM: The patient is awake and alert. There is no obvious cranial nerve abnormality. The gait was not tested. IMAGING: CTA of the chest: There is no evidence of pulmonary embolism. The partial image of the kidneys in the upper abdomen demonstrate an edematous appearance. CT head was negative. IMPRESSION: 1. Near syncopal episode, rule out pulmonary hypertension. The patient had no pulmonary embolism on CTA. 2. History of pulmonary embolism times 3. CONSULT REPORT [id number] WINNIE SORENSEN 3. Nephrotic syndrome. 4. Hypertension. 5. Preprocedure clearance. RECOMMENDATION: 1. We will stop the Eliquis. Start the Lovenox. 2. Check the cardiac echo. 3. Follow up labs. Discussed with Dr. Henderson. Dr. Mei, thank you for involving me in the care of Ms. Sorensen. TRANSINT:[id number] Voice Confirmation ID: [id number] DOCUMENT ID: [id number] EDI HASSAN MD at 1711 CC: [id number] DICTATION DATE: 09/19/18 1803 PHOTOENGRAVING PRINTER: 09/19/18 2228 ADM IN [id number] [place] [address]
[2018-09-18 13:42] LABS: BASOPHILS 0.1 % (0-2); EOSINOPHILS 3.3 % (0-7); HEMATOCRIT 32.1 % (36.0-48.0); HEMOGLOBIN 10.3 g/dL (12-16); IMMATURE GRANULOCYTES 0.3 % (0-5); LYMPHOCYTES 32.6 % (15-50); MCHC 32.1 g/dL (31.0-37.0); MCV 81.1 fL (80.0-100.0); MEAN PLATELET VOLUME 10.7 fL (7.4-10.4); MONOCYTES 6.9 % (2-11); NEUTROPHILS 56.8 % (40-80); PLATELET COUNT 218 10x3/uL (130-400); RBC 3.96 10x6/uL (4.00-5.40); RDW 15.4 % (11.5-14.5); WBC 7.2 10x3/uL (4.8-10.8)
[2018-09-18 13:50] LABS: APPEARANCE CLOUDY (CLEAR); COLOR YELLOW (YELLOW); HCG URINE NEGATIVE (NEGATIVE)
[2018-09-18 13:51] LABS: BILIRUBIN NEGATIVE (NEGATIVE); GLUCOSE NEGATIVE (NEGATIVE); KETONE NEGATIVE (NEGATIVE); NITRITE NEGATIVE (NEGATIVE); PROTEIN 3+ mg/dL (NEGATIVE); UROBILINOGEN NORMAL (NORMAL)
[2018-09-18 13:53] LABS: BACTERIA MODERATE /hpf (NONE SEEN); EPITHELIAL CELLS 0-5 /hpf (0-5); HYALINE CAST 0-5 /lpf (NONE SEEN); RED CELLS - URINE 0-5 /hpf (0-5); WHITE CELLS - URINE 0-5 /hpf (0-5)
[2018-09-18 13:56] LABS: ALBUMIN 1.5 g/dL (3.4-5.0); ALKALINE PHOSPHATASE 56 U/L (46-116); ALT (SGPT) 18 U/L (10-68); BILIRUBIN - TOTAL 0.13 mg/dL (0.2-1.3); CALC OSMOLALITY 281 mosm/kg (275-300); CALCIUM 8.1 mg/dL (8.5-10.1); CARBON DIOXIDE 27.9 mmol/L (21.0-32.0); CHLORIDE - SERUM 108 mmol/L (98-107); GLUCOSE 93 mg/dL (74-106); POTASSIUM - SERUM 3.3 mmol/L (3.5-5.1); SODIUM 140 mmol/L (136-145); UREA NITROGEN 20 mg/dL (7-18); eGFR NON AFRICAN AMERICAN 70 mL/min (90-120)
[2018-09-18 14:08] VITALS: BP 132/85
[2018-09-18 14:23] LABS: CKMB 1.5 U/L (0.0-3.6); CREATINE KINASE 169 UL (21-215); TROPONIN-I < 0.017 ng/mL (0.000-0.060)
[2018-09-18 14:38] VITALS: BP 136/82
[2018-09-18 14:41] VITALS: BP 132/82
[2018-09-18 15:31] LABS: MAGNESIUM - SERUM 1.8 mg/dL (1.8-2.4); THYROID STIMULATING HORMONE 1.21 uIU/mL (0.36-3.74)
[2018-09-18 17:27] VITALS: BP 133/75
[2018-09-18 18:01] VITALS: BP 140/82
[2018-09-18 18:30] VITALS: BP 140/86
[2018-09-18 18:58] LABS: HIV 1 & 2- RAPID SCREEN NEGATIVE (NEGATIVE)
[2018-09-18] MEDS ORDERED: LOPRESSOR25 MG PO (22:47)
[2018-09-19] VITALS: BP 128/71
[2018-09-19 02:14] VITALS: BMI 41.6
[2018-09-19 04:00] VITALS: BP 108/65
[2018-09-19 05:56] LABS: BASOPHILS 0.5 % (0-2); EOSINOPHILS 3.9 % (0-7); HEMATOCRIT 28.5 % (36.0-48.0); HEMOGLOBIN 8.9 g/dL (12-16); IMMATURE GRANULOCYTES 0.2 % (0-5); LYMPHOCYTES 43.9 % (15-50); MCH 25.6 pg (26.0-34.0); MCHC 31.2 g/dL (31.0-37.0); MCV 81.9 fL (80.0-100.0); MEAN PLATELET VOLUME 10.9 fL (7.4-10.4); MONOCYTES 9.9 % (2-11); NEUTROPHILS 41.6 % (40-80); PLATELET COUNT 201 10x3/uL (130-400); RBC 3.48 10x6/uL (4.00-5.40); RDW 15.6 % (11.5-14.5)
[2018-09-19 06:16] LABS: ALBUMIN 1.2 g/dL (3.4-5.0); ANION GAP 7.7 mmol/L (8-16); BILIRUBIN - TOTAL 0.14 mg/dL (0.2-1.3); CALCIUM 7.3 mg/dL (8.5-10.1); CARBON DIOXIDE 26.7 mmol/L (21.0-32.0); CREATININE - SERUM 1.1 mg/dL (0.6-1.3); MAGNESIUM - SERUM 1.8 mg/dL (1.8-2.4); POTASSIUM - SERUM 3.4 mmol/L (3.5-5.1); PROTEIN - SERUM 5.3 g/dL (6.4-8.2)
[2018-09-19 07:54] VITALS: BP 118/68
[2018-09-19 10:54] VITALS: BP 119/66
[2018-09-19 13:35] LABS: INR 0.9 (0.85-1.17); PROTIME 11.7 SECONDS (11.6-15.0)
[2018-09-19 15:00] VITALS: BP 142/86
[2018-09-19 19:00] VITALS: BP 136/76
[2018-09-20 00:45] VITALS: BP 124/63
[2018-09-20 04:57] VITALS: BP 117/64
[2018-09-20 05:22] LABS: BASOPHILS 0.3 % (0-2); EOSINOPHILS 4.7 % (0-7); HEMATOCRIT 28.8 % (36.0-48.0); IMMATURE GRANULOCYTES 0.3 % (0-5); LYMPHOCYTES 46.5 % (15-50); MCH 25.5 pg (26.0-34.0); MCHC 31.3 g/dL (31.0-37.0); MCV 81.6 fL (80.0-100.0); MEAN PLATELET VOLUME 11.3 fL (7.4-10.4); MONOCYTES 7.5 % (2-11); NEUTROPHILS 40.7 % (40-80); PLATELET COUNT 230 10x3/uL (130-400); RBC 3.53 10x6/uL (4.00-5.40); RDW 15.7 % (11.5-14.5); WBC 6.8 10x3/uL (4.8-10.8)
[2018-09-20 05:44] LABS: ANION GAP 9.8 mmol/L (8-16); CARBON DIOXIDE 24.9 mmol/L (21.0-32.0); CREATININE - SERUM 1.1 mg/dL (0.6-1.3); POTASSIUM - SERUM 3.7 mmol/L (3.5-5.1)
[2018-09-20 06:57] LABS: ERYTHROCYTE SEDIMENTATION RATE 68 mm/hr (0-20)
[2018-09-20 08:11] VITALS: BP 129/73
[2018-09-20 08:20] LABS: COMPLEMENT C4 27.1 mg/dL (17.4-52.2)
[2018-09-20 11:08] VITALS: BP 110/73
[2018-09-20 12:13] VITALS: BMI 40.3
[2018-09-20 16:21] LABS: HCG URINE NEGATIVE (NEGATIVE)
[2018-09-20 16:40] VITALS: BP 118/77
[2018-09-20 20:48] VITALS: BP 120/78
[2018-09-21] VITALS (13 sets, daily range): BP systolic 106–132; BP diastolic 52–82; Ht 170.2 cm; Wt 122.7 kg
[2018-09-21 06:09] LABS: HEMATOCRIT 27.7 % (36.0-48.0); HEMOGLOBIN 8.6 g/dL (12-16); MCH 25.4 pg (26.0-34.0); MCV 81.7 fL (80.0-100.0); MEAN PLATELET VOLUME 11.1 fL (7.4-10.4); PLATELET COUNT 217 10x3/uL (130-400); RBC 3.39 10x6/uL (4.00-5.40); RDW 15.9 % (11.5-14.5); WBC 5.2 10x3/uL (4.8-10.8)
[2018-09-21 06:27] LABS: ANION GAP 8.6 mmol/L (8-16); CALCIUM 7.1 mg/dL (8.5-10.1); CARBON DIOXIDE 24.4 mmol/L (21.0-32.0)
[2018-09-21 06:45] LABS: INR 1.01 (0.85-1.17); PROTIME 12.8 SECONDS (11.6-15.0)
[2018-09-21 08:54] LABS: EOSINOPHILS 2 % (0-7); LYMPHOCYTES 52 % (15-50); MONOCYTES 8 % (2-11); NEUTROPHILS 37 % (40-80); PLATELET ESTIMATE NORMAL
[2018-09-21 10:17] LABS: FOLATE (FOLIC ACID) - SERUM 3.8 ng/mL (>3.0)
[2018-09-21 15:24] LABS: BASOPHILS 0.4 % (0-2); EOSINOPHILS 3.7 % (0-7); HEMATOCRIT 29.2 % (36.0-48.0); HEMOGLOBIN 9.1 g/dL (12-16); IMMATURE GRANULOCYTES 0.2 % (0-5); LYMPHOCYTES 39.1 % (15-50); MCH 25.4 pg (26.0-34.0); MCHC 31.2 g/dL (31.0-37.0); MCV 81.6 fL (80.0-100.0); MEAN PLATELET VOLUME 11.1 fL (7.4-10.4); MONOCYTES 8.8 % (2-11); NEUTROPHILS 47.8 % (40-80); PLATELET COUNT 221 10x3/uL (130-400); RBC 3.58 10x6/uL (4.00-5.40); RDW 15.7 % (11.5-14.5); WBC 5.3 10x3/uL (4.8-10.8)
[2018-09-21 16:15] LABS: SPE - A/G RATIO 0.5 (0.7-1.7); SPE - ALBUMIN 1.7 g/dL (2.9-4.4); SPE - ALPHA-1 GLOBULIN 0.2 g/dL (0.0-0.4); SPE - ALPHA-2 GLOBULIN 1.2 g/dL (0.4-1.0); SPE - BETA GLOBULIN 0.6 g/dL (0.7-1.3); SPE - GAMMA GLOBULIN 1.1 g/dL (0.4-1.8); SPE - M-SPIKE Not Observed g/dL (Not Observed); SPE - TOTAL PROTEIN 4.8 g/dL (6.0-8.5)
[2018-09-21 19:21] LABS: APPEARANCE CLEAR (CLEAR); BILIRUBIN NEGATIVE (NEGATIVE); COLOR YELLOW (YELLOW); GLUCOSE NEGATIVE (NEGATIVE); KETONE NEGATIVE (NEGATIVE); NITRITE NEGATIVE (NEGATIVE); PROTEIN 1+ mg/dL (NEGATIVE); UROBILINOGEN NORMAL (NORMAL)
[2018-09-21 19:22] LABS: BACTERIA MODERATE /hpf (NONE SEEN); EPITHELIAL CELLS 0-5 /hpf (0-5); RED CELLS - URINE 25-50 /hpf (0-5); WHITE CELLS - URINE 0-5 /hpf (0-5)
[2018-09-22] VITALS: BP 103/70
[2018-09-22 04:00] VITALS: BP 113/61
[2018-09-22 06:02] LABS: BASOPHILS 0.3 % (0-2); EOSINOPHILS 3.8 % (0-7); HEMATOCRIT 27.5 % (36.0-48.0); HEMOGLOBIN 8.7 g/dL (12-16); IMMATURE GRANULOCYTES 0.2 % (0-5); LYMPHOCYTES 38.5 % (15-50); MCH 25.8 pg (26.0-34.0); MCHC 31.6 g/dL (31.0-37.0); MCV 81.6 fL (80.0-100.0); MEAN PLATELET VOLUME 11.3 fL (7.4-10.4); MONOCYTES 11.1 % (2-11); NEUTROPHILS 46.1 % (40-80); PLATELET COUNT 221 10x3/uL (130-400); RBC 3.37 10x6/uL (4.00-5.40); RDW 15.9 % (11.5-14.5); WBC 6.1 10x3/uL (4.8-10.8)
[2018-09-22 06:09] LABS: ANION GAP 8.9 mmol/L (8-16); CALCIUM 7.1 mg/dL (8.5-10.1); POTASSIUM - SERUM 3.9 mmol/L (3.5-5.1)
[2018-09-22 08:02] VITALS: BP 135/76
[2018-09-22 11:19] LABS: LUPUS - INTERPRETATION Comment: (()); LUPUS - THROMBIN TIME 16.8 sec (0.0-23.0); LUPUS - dRVVT 43.8 sec (0.0-47.0); PTT-LA 42.4 sec (0.0-51.9)
[2018-09-22 11:45] VITALS: BP 120/75
[2018-09-22 14:23] LABS: PROTEIN S - FREE 68 % (57-157); PROTEIN S - FUNCTIONAL 85 % (63-140); PROTEIN S - TOTAL 144 % (60-150)
[2018-09-22 16:28] VITALS: BP 116/65
[2018-09-22 19:11] LABS: BASOPHILS 0.3 % (0-2); EOSINOPHILS 3.3 % (0-7); HEMATOCRIT 29.7 % (36.0-48.0); HEMOGLOBIN 9.4 g/dL (12-16); IMMATURE GRANULOCYTES 0.3 % (0-5); LYMPHOCYTES 32.7 % (15-50); MCH 25.8 pg (26.0-34.0); MCHC 31.6 g/dL (31.0-37.0); MCV 81.4 fL (80.0-100.0); MEAN PLATELET VOLUME 11.4 fL (7.4-10.4); MONOCYTES 10.3 % (2-11); NEUTROPHILS 53.1 % (40-80); PLATELET COUNT 213 10x3/uL (130-400); RBC 3.65 10x6/uL (4.00-5.40); RDW 15.7 % (11.5-14.5); WBC 6.9 10x3/uL (4.8-10.8)
[2018-09-22 21:34] VITALS: BP 119/67
[2018-09-23 01:20] VITALS: BP 119/71
[2018-09-23 05:16] LABS: PROTEIN C - ANTIGEN 108 % (60-150); PROTEIN C - FUNCTIONAL 122 % (73-180)
[2018-09-23 06:21] LABS: BASOPHILS 0.1 % (0-2); EOSINOPHILS 2.9 % (0-7); HEMOGLOBIN 8.9 g/dL (12-16); IMMATURE GRANULOCYTES 0.3 % (0-5); LYMPHOCYTES 29.2 % (15-50); MCH 25.7 pg (26.0-34.0); MCHC 31.8 g/dL (31.0-37.0); MCV 80.9 fL (80.0-100.0); MEAN PLATELET VOLUME 11.1 fL (7.4-10.4); MONOCYTES 13.5 % (2-11); PLATELET COUNT 198 10x3/uL (130-400); RBC 3.46 10x6/uL (4.00-5.40); RDW 15.9 % (11.5-14.5); WBC 6.9 10x3/uL (4.8-10.8)
[2018-09-23 06:38] VITALS: BP 116/62
[2018-09-23 06:40] LABS: CALCIUM 7.3 mg/dL (8.5-10.1); CARBON DIOXIDE 22.1 mmol/L (21.0-32.0); POTASSIUM - SERUM 4.1 mmol/L (3.5-5.1)
[2018-09-23 08:09] VITALS: BP 124/75
[2018-09-23 12:58] VITALS: BP 142/68
[2018-09-23 13:15] LABS: ANCA - ANTIMYELOPEROXIDASE <9.0 U/mL (0.0-9.0); ANCA - ANTIPROTEINASE 3 <3.5 U/mL (0.0-3.5); ANCA - ATYPICAL <1:20 titer (Neg:<1:20); ANCA - CYTOPLASMIC <1:20 titer (Neg:<1:20); ANCA - PERINUCLEAR <1:20 titer (Neg:<1:20)
[2018-09-23 17:41] VITALS: BP 128/80
[2018-09-23 19:35] LABS: BASOPHILS 0.1 % (0-2); EOSINOPHILS 2.7 % (0-7); HEMATOCRIT 28.7 % (36.0-48.0); HEMOGLOBIN 9.1 g/dL (12-16); IMMATURE GRANULOCYTES 0.3 % (0-5); LYMPHOCYTES 33.1 % (15-50); MCH 25.8 pg (26.0-34.0); MCHC 31.7 g/dL (31.0-37.0); MCV 81.3 fL (80.0-100.0); MEAN PLATELET VOLUME 10.8 fL (7.4-10.4); MONOCYTES 10.4 % (2-11); NEUTROPHILS 53.4 % (40-80); PLATELET COUNT 192 10x3/uL (130-400); RBC 3.53 10x6/uL (4.00-5.40); RDW 15.8 % (11.5-14.5); WBC 7.1 10x3/uL (4.8-10.8)
[2018-09-23 20:00] VITALS: BP 127/78
[2018-09-24] VITALS: BP 123/77
[2018-09-24 04:00] VITALS: BP 128/83
[2018-09-24 05:06] LABS: BASOPHILS 0.2 % (0-2); EOSINOPHILS 4.6 % (0-7); HEMATOCRIT 27.9 % (36.0-48.0); HEMOGLOBIN 8.8 g/dL (12-16); IMMATURE GRANULOCYTES 0.2 % (0-5); MCH 25.5 pg (26.0-34.0); MCHC 31.5 g/dL (31.0-37.0); MCV 80.9 fL (80.0-100.0); MEAN PLATELET VOLUME 11.3 fL (7.4-10.4); MONOCYTES 11.2 % (2-11); NEUTROPHILS 48.8 % (40-80); PLATELET COUNT 224 10x3/uL (130-400); RBC 3.45 10x6/uL (4.00-5.40); RDW 15.8 % (11.5-14.5); WBC 5.7 10x3/uL (4.8-10.8)
[2018-09-24 05:35] LABS: ANION GAP 10.1 mmol/L (8-16); CALCIUM 7.1 mg/dL (8.5-10.1); CREATININE - SERUM 1.2 mg/dL (0.6-1.3); POTASSIUM - SERUM 4.1 mmol/L (3.5-5.1)
[2018-09-24 09:50] VITALS: BP 150/92
[2018-09-24] MEDS ORDERED: ELIQUIS5 MG PO (13:18)
== END 2018-09-24 18:31 | disposition home or self-care (01) | DRG 699 ==
LOC: D.ER 12:49 → D.M2 17:53 → D.EDHOLD 17:53 → OBSVTIME 17:53 → D.EDHOLD 17:53 → D.M2 18:46
PROVIDERS: Family Medicine; General Practice; Internal Medicine Hematology & Oncology; Internal Medicine Nephrology
PROC: 0TB03ZX Excision of Right Kidney, Percutaneous Approach, Diagnostic (ICD-10-PCS; principal; 2018-09-21 09:21)
DX: N04.2 Nephrotic syndrome with diffuse membranous glomerulonephritis (principal); D68.59 Other primary thrombophilia; Z68.41 Body mass index [BMI] 40.0-44.9, adult; Z79.01 Long term (current) use of anticoagulants; E66.01 Morbid (severe) obesity due to excess calories; I10 Essential (primary) hypertension; E03.9 Hypothyroidism, unspecified; R31.9 Hematuria, unspecified; Z86.711 Personal history of pulmonary embolism

== ENCOUNTER 2018-12-07 17:09 | Inpatient (IN) | payer MEDICAID ==
[~2018-12-07] VITALS: Ht 170.2 cm; Wt 106.1 kg
[~2018-12-07 17:09] MED LIST changes: +LOPRESSOR25 MG PO
--- NOTE | 2018-12-07 19:13 | NUR ---
PT STABLE, HAND OFF GIVEN TO CALE RN PT STABLE, CALL LIGHT WITHIN REACH. GAMALIELIN E AT BEDSIDE TO BE SENT TO LAB WITH BLOOD DRAW. CALE AT BEDSIDE.
[2018-12-07 19:29] LABS: BASOPHILS 0.1 % (0-2); EOSINOPHILS 0.3 % (0-7); HEMATOCRIT 36.9 % (36.0-48.0); HEMOGLOBIN 11.8 g/dL (12-16); IMMATURE GRANULOCYTES 0.3 % (0-5); LYMPHOCYTES 7.6 % (15-50); MCH 26.2 pg (26.0-34.0); MCV 81.8 fL (80.0-100.0); MEAN PLATELET VOLUME 10.3 fL (7.4-10.4); MONOCYTES 4.5 % (2-11); NEUTROPHILS 87.2 % (40-80); PLATELET COUNT 192 10x3/uL (130-400); RBC 4.51 10x6/uL (4.00-5.40); RDW 15.1 % (11.5-14.5)
--- NOTE | 2018-12-07 19:39 | NUR ---
22 G SITED TO RIGHT WRIST AREA X 1 ATTEMPT. PT TOLERATED WELL. BLOOD DRAW OBTAINED AND URINE SENT TO LAB AT THIS TIME. DENIES NEEDS AT THSI TIME.
[2018-12-07 19:50] LABS: ALBUMIN 1.5 g/dL (3.4-5.0); ALKALINE PHOSPHATASE 65 U/L (46-116); ALT (SGPT) 16 U/L (10-68); BILIRUBIN - TOTAL 0.18 mg/dL (0.2-1.3); CALC OSMOLALITY 286 mosm/kg (275-300); CARBON DIOXIDE 21.9 mmol/L (21.0-32.0); CHLORIDE - SERUM 111 mmol/L (98-107); CREATININE - SERUM 1.1 mg/dL (0.6-1.3); GLUCOSE 81 mg/dL (74-106); POTASSIUM - SERUM 4.3 mmol/L (3.5-5.1); PROTEIN - SERUM 6.5 g/dL (6.4-8.2); SODIUM 143 mmol/L (136-145); UREA NITROGEN 20 mg/dL (7-18); eGFR NON AFRICAN AMERICAN 63 mL/min (90-120)
[2018-12-07 19:59] LABS: LIPASE 67 U/L (73-393); MAGNESIUM - SERUM 1.9 mg/dL (1.8-2.4); PRO BNP 126 pg/mL (0-125); TROPONIN-I < 0.017 ng/mL (0.000-0.060)
[2018-12-07 20:10] LABS: APPEARANCE CLEAR (CLEAR); BILIRUBIN NEGATIVE (NEGATIVE); COLOR YELLOW (YELLOW); GLUCOSE NEGATIVE (NEGATIVE); KETONE NEGATIVE (NEGATIVE); NITRITE NEGATIVE (NEGATIVE); PROTEIN 2+ mg/dL (NEGATIVE); SPECIFIC GRAVITY 1.015 (1.005-1.020); UROBILINOGEN NORMAL (NORMAL)
[2018-12-07 20:11] LABS: BACTERIA MODERATE /hpf (NONE SEEN); EPITHELIAL CELLS 0-5 /hpf (0-5); RED CELLS - URINE 0-5 /hpf (0-5); WHITE CELLS - URINE 0-5 /hpf (0-5)
[2018-12-07 22:42] LABS: HCG URINE NEGATIVE (NEGATIVE)
--- NOTE | 2018-12-07 22:56 | NUR ---
PT BACK FROM CT
--- NOTE | 2018-12-08 01:22 | NUR ---
DARRYLPIN STOPPED AT 0110
[2018-12-08] MEDS ORDERED: HYDROCHLOROTHIA50 MG PO (02:19)
[2018-12-08 04:57] VITALS: BP 131/86; BMI 36.7
--- NOTE | 2018-12-08 05:52 | NUR ---
EYES CLOSED RESPIRATIONS WITH EASE AND UNLABORED.
--- NOTE | 2018-12-08 05:52 | NUR ---
ASSESSMENT PER ADMIT PACKET.
--- NOTE | 2018-12-08 07:15 | NUR ---
MORNING ASSESSMENT COMPLETE. SEE ASSESSMENT FLOWSHEET FOR FURTHER DETAILS. SON AT BEDISDE. DENIES NEEDS AT THIS TIME. CL IN REACH. SIDE RAILS UPX 3 FOR PATIENT SAFETY
[2018-12-08 08:46] VITALS: BP 118/67
[2018-12-08 10:03] LABS: CREATININE - SERUM 1.5 mg/dL (0.6-1.3)
[2018-12-08 10:13] LABS: HEMATOCRIT 32.6 % (36.0-48.0); HEMOGLOBIN 10.3 g/dL (12-16); MCH 26.3 pg (26.0-34.0); MCHC 31.6 g/dL (31.0-37.0); MCV 83.4 fL (80.0-100.0); MEAN PLATELET VOLUME 10.4 fL (7.4-10.4); RBC 3.91 10x6/uL (4.00-5.40); RDW 15.2 % (11.5-14.5); WBC 15.6 10x3/uL (4.8-10.8)
[2018-12-08 10:14] LABS: PLATELET COUNT 123 10x3/uL (130-400)
[2018-12-08 11:32] LABS: LYMPHOCYTES 11 % (15-50); MONOCYTES 3 % (2-11); NEUTROPHILS 82 % (40-80); PLATELET ESTIMATE NORMAL
[2018-12-08 12:46] VITALS: BP 105/57
[2018-12-08 16:30] VITALS: BP 118/71
[2018-12-08 16:54] LABS: % SATURATION 10 % (15-55); IRON 10 ug/dl (35-150); TOTAL IRON BIND CAPACITY 100 ug/dl (260-445); UNSAT IRON BIND CAPACITY 90 ug/dl (150-375)
[2018-12-08 18:16] VITALS: BP 123/70
--- NOTE | 2018-12-08 20:30 | NUR ---
WATCHING TV QUIETLY. NO DISTRESS NOTED. RESP UNLABORED. SL TO RIGHT WRIST INTACT WITHOUT EDEMA OR REDNESS NOTED.CL IN REACH. AT BEDSIDE.
[2018-12-08 21:34] VITALS: BP 128/76
--- NOTE | 2018-12-09 00:26 | NUR ---
RESTING IN BED WITH NO NEEDS NOTED OR STATED RESP EVEN AND UNLABORED CALL LIGHT IN REACH.
[2018-12-09 01:05] VITALS: BP 108/64
[2018-12-09 04:55] LABS: BASOPHILS 0.1 % (0-2); EOSINOPHILS 0.3 % (0-7); HEMATOCRIT 28.2 % (36.0-48.0); HEMOGLOBIN 9.1 g/dL (12-16); IMMATURE GRANULOCYTES 0.4 % (0-5); LYMPHOCYTES 12.4 % (15-50); MCH 26.1 pg (26.0-34.0); MCHC 32.3 g/dL (31.0-37.0); MEAN PLATELET VOLUME 10.4 fL (7.4-10.4); MONOCYTES 4.9 % (2-11); NEUTROPHILS 81.9 % (40-80); PLATELET COUNT 140 10x3/uL (130-400); RBC 3.49 10x6/uL (4.00-5.40); RDW 15.1 % (11.5-14.5)
[2018-12-09 04:57] VITALS: BP 112/63
[2018-12-09 04:59] LABS: MCV 80.8 fL (80.0-100.0)
[2018-12-09 05:04] LABS: ANION GAP 12.6 mmol/L (8-16); CALCIUM 7.1 mg/dL (8.5-10.1); CARBON DIOXIDE 20.4 mmol/L (21.0-32.0)
[2018-12-09 05:07] LABS: CREATININE - SERUM 1.9 mg/dL (0.6-1.3)
[2018-12-09 10:04] VITALS: BP 105/61
--- NOTE | 2018-12-09 11:00 | NUR ---
SCD'S ON AND FUNCTIONING.
[2018-12-09 13:17] VITALS: Ht 170.2 cm; Wt 106.1 kg
[2018-12-09 14:49] VITALS: BP 104/62
--- NOTE | 2018-12-09 15:58 | NUR ---
ALERT AND ORIENTED.SLIGHT TENDERNESSS ON PALPATION TO RLQ WITH BS NOTED. DENIES ANY DYSURIA. LIMITED ROM TO RLE. WITH PEDAL PULSES NOTED W/O EDEMA. ENCOURATGED TO USE CALL LIGHT FOR ASSSIT.
--- NOTE | 2018-12-09 16:30 | NUR ---
IV INFILTRATED. RESITED TO RIGHT WRIST BY ANTHONY GRIMES. 3 ATTEMPTS.
[2018-12-09 17:36] VITALS: BP 104/67
[2018-12-09 19:00] VITALS: BP 126/73
--- NOTE | 2018-12-09 19:40 | NUR ---
RECEIVED REPORT, ASSUMED CARE, A&O, HELPED TO BEDSIDE COMMODE, DENIES NEEDS, CALL LIGHT IN REACH, BED LOWEST POSITION, IRON IV INFUSING, WILL CONTINUE POC
[2018-12-10] VITALS: BP 121/61
[2018-12-10 03:00] VITALS: BP 125/58
--- NOTE | 2018-12-10 04:10 | NUR ---
PT RESTING QUIETLY, EYES CLOSED. RESP EVEN, UNLABORED. NO DISTRESS NOTED. AGREE WITH TIE PRESSER'S ASSESSMENT. CONTINUE PLAN OF CARE.
[2018-12-10 08:16] LABS: FOLATE (FOLIC ACID) - SERUM 3.2 ng/mL (>3.0)
[2018-12-10 10:58] VITALS: BP 123/69
[2018-12-10 13:01] LABS: BASOPHILS 0.1 % (0-2); IMMATURE GRANULOCYTES 0.3 % (0-5); LYMPHOCYTES 14.3 % (15-50); MCH 25.8 pg (26.0-34.0); MCHC 32.1 g/dL (31.0-37.0); MCV 80.4 fL (80.0-100.0); MEAN PLATELET VOLUME 11.5 fL (7.4-10.4); MONOCYTES 7.9 % (2-11); NEUTROPHILS 76.4 % (40-80); RDW 14.9 % (11.5-14.5)
[2018-12-10 13:09] LABS: HEMATOCRIT 22.1 % (36.0-48.0); PLATELET COUNT 195 10x3/uL (130-400); RBC 2.75 10x6/uL (4.00-5.40); WBC 11.7 10x3/uL (4.8-10.8)
[2018-12-10 13:10] LABS: HEMOGLOBIN 7.1 g/dL (12-16)
[2018-12-10 13:21] LABS: ANION GAP 13.5 mmol/L (8-16); CALCIUM 7.5 mg/dL (8.5-10.1); CARBON DIOXIDE 21.5 mmol/L (21.0-32.0); CREATININE - SERUM 1.7 mg/dL (0.6-1.3)
[2018-12-10 14:18] VITALS: BP 109/61
--- NOTE | 2018-12-10 15:04 | NUR ---
RESTING QUIETLY IN BED. BLOOD BEING DRAWN PER LAB. AMBULATED IN HALLWAY IWTH PT THIS AM. REPORTS NUMBNESS SLOWLY GOING AWAY. CONTINUE ADA ACCOMMODATION CONSULTANT PLAN OF CARE. DENIES NEEDS.
[2018-12-10 15:44] LABS: HEMOGLOBIN 8.5 g/dL (12-16)
[2018-12-10 15:46] LABS: HEMATOCRIT 26.8 % (36.0-48.0)
[2018-12-10 17:57] VITALS: BP 109/68
[2018-12-10 19:00] VITALS: BP 125/62
--- NOTE | 2018-12-10 20:00 | NUR ---
RECEIVED REPORT, ASSUMED CARE, A&O, DENIES NEEDS, CALL LIGHT IN REACH, BED LOWEST POSITION, NO S/S OF DISTRESS NOTED, WILL CONTINUE TO MONITOR
[2018-12-10 20:39] LABS: APPEARANCE CLEAR (CLEAR); BACTERIA FEW /hpf (NONE SEEN); BILIRUBIN NEGATIVE (NEGATIVE); COLOR YELLOW (YELLOW); GLUCOSE NEGATIVE (NEGATIVE); KETONE NEGATIVE (NEGATIVE); NITRITE NEGATIVE (NEGATIVE); PROTEIN 2+ mg/dL (NEGATIVE); RED CELLS - URINE OCC /hpf (0-5); SPECIFIC GRAVITY 1.015 (1.005-1.020); UROBILINOGEN NORMAL (NORMAL); WHITE CELLS - URINE 0-5 /hpf (0-5)
[2018-12-11] VITALS: BP 130/56
[2018-12-11 03:00] VITALS: BP 127/63
--- NOTE | 2018-12-11 03:18 | NUR ---
RESTING QUITELY IN BED NO APPARENT DISTRESS CALL LIGHT IN REACH
[2018-12-11 07:00] LABS: BASOPHILS 0.1 % (0-2); EOSINOPHILS 2.5 % (0-7); IMMATURE GRANULOCYTES 0.3 % (0-5); LYMPHOCYTES 21.8 % (15-50); MCHC 32.1 g/dL (31.0-37.0); MCV 80.9 fL (80.0-100.0); MEAN PLATELET VOLUME 11.5 fL (7.4-10.4); MONOCYTES 10.1 % (2-11); NEUTROPHILS 65.2 % (40-80); RDW 14.8 % (11.5-14.5)
[2018-12-11 07:01] LABS: PLATELET COUNT 236 10x3/uL (130-400); RBC 3.46 10x6/uL (4.00-5.40); WBC 7.2 10x3/uL (4.8-10.8)
[2018-12-11 07:03] LABS: ANION GAP 14.4 mmol/L (8-16); CALCIUM 7.4 mg/dL (8.5-10.1); CARBON DIOXIDE 20.3 mmol/L (21.0-32.0); CREATININE - SERUM 1.7 mg/dL (0.6-1.3); POTASSIUM - SERUM 3.7 mmol/L (3.5-5.1)
[2018-12-11 09:27] VITALS: BP 129/68
[2018-12-11 13:20] VITALS: BP 112/67
[2018-12-11 17:02] VITALS: BP 120/76
[2018-12-11 19:00] VITALS: BP 113/65
--- NOTE | 2018-12-11 19:30 | NUR ---
RECEIVED REPORT, ASSUMED CARE, A&O, SLEEPING, BREATHING EVEN UNLABORED, CALL LIGHT IN REACH, BED LOWEST POSITION, AROUSED EASILY TO VOICE, DENIES NEEDS, WILL CONITNUE TO MONITOR
[2018-12-12] VITALS: BP 115/56
[2018-12-12 03:00] VITALS: BP 110/48
--- NOTE | 2018-12-12 04:25 | NUR ---
PT RESTING QUIETLY, EYES CLOSED. RESP EVEN. NO DISTRESS NOTED. AGREE WITH COMPANY DOCTOR'S ASSESSMENT. CONTINUE PLAN OF CARE.
[2018-12-12 05:14] LABS: BASOPHILS 0.2 % (0-2); EOSINOPHILS 4.2 % (0-7); HEMATOCRIT 24.3 % (36.0-48.0); HEMOGLOBIN 7.8 g/dL (12-16); IMMATURE GRANULOCYTES 0.6 % (0-5); MCH 25.7 pg (26.0-34.0); MCHC 32.1 g/dL (31.0-37.0); MCV 79.9 fL (80.0-100.0); MEAN PLATELET VOLUME 10.4 fL (7.4-10.4); MONOCYTES 12.3 % (2-11); NEUTROPHILS 47.7 % (40-80); PLATELET COUNT 240 10x3/uL (130-400); RBC 3.04 10x6/uL (4.00-5.40); RDW 14.7 % (11.5-14.5); WBC 5.4 10x3/uL (4.8-10.8)
[2018-12-12 05:38] LABS: ANION GAP 10.6 mmol/L (8-16); CALCIUM 7.4 mg/dL (8.5-10.1); CARBON DIOXIDE 22.5 mmol/L (21.0-32.0); CREATININE - SERUM 1.4 mg/dL (0.6-1.3); POTASSIUM - SERUM 4.1 mmol/L (3.5-5.1)
[2018-12-12 08:21] VITALS: BP 128/64
--- NOTE | 2018-12-12 10:04 | MORECARE ---
CASE MANAGEMENT DISCHARGE SUMMARY PATIENT: WINNIE DELANEY UNIT: [id number] ADM DATE: 12/08/18 AGE: 28 : 90 SEX: F ROOM/BED: D.2229 AUTHOR: LIBRADO CASTANEDA PHYSICIAN: REFERRING PHYSICIAN: ERVIN LU MD DATE OF SERVICE: 12/12/18 Discharge Plan Patient Name: WINNIE DELANEY [facility] [facility] 1990 Planned Disposition: Home Anticipated Discharge Date: 12/12/18 Discharge Date: Expected LOS: 4 Initial Reviewer: [email or web address] Initial Review Date: 12/12/2018 Generated: 12/12/18 11:04 am Patient Name: WINNIE DELANEY Page [phone] at 1004 All edits/amendments must be made on the electronic document DICTATION DATE: 12/12/18 1003 DIRECT CUSTOMER SERVICE REPRESENTATIVE: MARY 12/12/18 1003 RPT#: [id number] DC DATE: STATUS: ADM IN [facility] [address] [place] [address] END OF REPORT
--- NOTE | 2018-12-12 10:12 | MORECARE ---
CASE MANAGEMENT DISCHARGE SUMMARY PATIENT: WINNIE DELANEY UNIT: [id number] ADM DATE: 12/08/18 AGE: 28 : 90 SEX: F ROOM/BED: D.2229 AUTHOR: LEONEL,DOC PHYSICIAN: REFERRING PHYSICIAN: ERVIN LU MD DATE OF SERVICE: 12/12/18 Discharge Plan Patient Name: WINNIE DELANEY Facility: [facility]:[place] : 1990 Planned Disposition: Home Anticipated Discharge Date: 12/12/18 Discharge Date: Expected LOS: 4 Initial Reviewer: [email or web address] Initial Review Date: 12/12/2018 Generated: 12/12/18 11:12 am Comments DCP- Discharge Planning Updated by [email or web address]: Esmer Rendon on 12/12/18 9:[address] Patient Name: WINNIE DELANEY Admission Status: ER Accout number: [id number] Admission Date: 12-08-2018 : 1990 Admission Diagnosis: Attending: ERVIN LU Current LOS: 4 Anticipated DC Date: 12-12-2018 Planned Disposition: Home Primary Insurance: MEDICAID [place] Discharge Planning Comments: CM met with patient to discuss discharge planning/needs. States she lives with a friend and her three children. States she is independent with all ADL's. States she can drive, but does not have a car right now. States her friend (Joan) will pick her up at discharge. Declines need for home health. Denies having any DME or DME needs. No needs identified. CM will continue to follow and assist with discharge planning/needs. Pay Station Attendant: Esmer Rendon DCPIA - Discharge Planning Initial Assessment Updated by [email or web address]: Esmer Rendon on 12/12/18 10:05 am * Is the patient Alert and Oriented? Yes * How many steps to enter\exit or inside your home? 3/0 * PCP Alexandra Montgomery at [facility] * [facility] * Preadmission Environment Homeless * ADLs Independent * Equipment None * List name and contact numbers for known caregivers / representatives who currently or will assist patient after discharge: Lives with friend and Children (ages 12,6,3) * Verbal permission to speak to the caregivers and representatives has been obtained from the patient. Yes * Community resources currently utilized None * Additional services required to return to the preadmission environment? No * Can the patient safely return to the preadmission environment? Yes * Has this patient been hospitalized within the prior 30 days at any hospital? No Last DP export: 12/12/18 9:04 a Patient Name: WINNIE DELANEY Page [phone] at 1012 All edits/amendments must be made on the electronic document DICTATION DATE: 12/12/18 1011 WELFARE SUPERVISOR: MARY 12/12/18 1011 RPT#: [id number] DC DATE: STATUS: ADM IN [facility] [address] [place] [address] END OF REPORT
[2018-12-12 10:38] LABS: BASOPHILS 0.3 % (0-2); EOSINOPHILS 3.5 % (0-7); HEMATOCRIT 27.1 % (36.0-48.0); HEMOGLOBIN 8.7 g/dL (12-16); IMMATURE GRANULOCYTES 0.7 % (0-5); MCH 25.9 pg (26.0-34.0); MCHC 32.1 g/dL (31.0-37.0); MCV 80.7 fL (80.0-100.0); MEAN PLATELET VOLUME 10.5 fL (7.4-10.4); MONOCYTES 10.8 % (2-11); NEUTROPHILS 53.7 % (40-80); PLATELET COUNT 270 10x3/uL (130-400); RBC 3.36 10x6/uL (4.00-5.40); RDW 14.5 % (11.5-14.5)
[2018-12-12] MEDS ORDERED: UROCIT-K10 MEQ PO (11:01)
[2018-12-12] MEDS ORDERED: FLORAJEN3 CAPS460 MG PO (11:02)
[2018-12-12] MEDS ORDERED: LEVOFLOXACIN500 MG PO (11:03)
[2018-12-12] MEDS ORDERED: CEREFOLIN TAB1 TAB PO (11:04)
[2018-12-12] MEDS ORDERED: FERROUS SULFAT325 MG PO (11:04)
[2018-12-12 12:20] VITALS: BP 118/74
--- NOTE | 2018-12-12 13:06 | NUR ---
DISCUSSED DISCHARGE INSTRUCTIONS, MEDICATIONS AND FOLLOW-UP WITH PATIENT. VERBALIZED UNDERSTANDING. IV REMOVED TIP INTACT. PATIENT AWAITING RIDE TO DISCHARGE HOME.
--- NOTE | 2018-12-12 14:08 | NUR ---
PATIENT DISCHARGED TO LOBBY TO WAIT FOR RIDE VIA WHEELCHAIR WITH VOLUNTEER. ALL BELONGINGS SENT WITH PATIENT.
--- NOTE | 2018-12-13 09:35 | MORECARE ---
CASE MANAGEMENT DISCHARGE SUMMARY PATIENT: WINNIE DELANEY UNIT: [id number] ADM DATE: 12/08/18 AGE: 28 : 90 SEX: F ROOM/BED: D.2229 AUTHOR: LEONEL,DOC PHYSICIAN: REFERRING PHYSICIAN: ERVIN LU MD DATE OF SERVICE: 12/13/18 Discharge Plan Patient Name: WINNIE DELANEY Facility: [facility]:[place] : 1990 Planned Disposition: Home Anticipated Discharge Date: 12/12/18 Discharge Date: 12/12/2018 Expected LOS: 4 Initial Reviewer: [email or web address] Initial Review Date: 12/12/2018 Generated: 12/13/18 10:35 am Comments DCP- Discharge Planning Updated by [email or web address]: Esmer Rendon on 12/12/18 9:[address] Patient Name: WINNIE DELANEY Admission Status: ER Accout number: [id number] Admission Date: 12-08-2018 : 1990 Admission Diagnosis: Attending: ERVIN LU Current LOS: 4 Anticipated DC Date: 12-12-2018 Planned Disposition: Home Primary Insurance: MEDICAID [place] Discharge Planning Comments: CM met with patient to discuss discharge planning/needs. States she lives with a friend and her three children. States she is independent with all ADL's. States she can drive, but does not have a car right now. States her friend (Joan) will pick her up at discharge. Declines need for home health. Denies having any DME or DME needs. No needs identified. CM will continue to follow and assist with discharge planning/needs. Professor Of Counseling: Esmer Rendon DCPIA - Discharge Planning Initial Assessment Updated by [email or web address]: Esmer Rendon on 12/12/18 10:05 am * Is the patient Alert and Oriented? Yes * How many steps to enter\exit or inside your home? 3/0 * PCP Alexandra Montgomery at [facility] * Pharmacy [facility] [address] * Preadmission Environment Homeless * ADLs Independent * Equipment None * List name and contact numbers for known caregivers / representatives who currently or will assist patient after discharge: Lives with friend and Children (ages 12,6,3) * Verbal permission to speak to the caregivers and representatives has been obtained from the patient. Yes * Community resources currently utilized None * Additional services required to return to the preadmission environment? No * Can the patient safely return to the preadmission environment? Yes * Has this patient been hospitalized within the prior 30 days at any hospital? No Last DP export: 12/12/18 9:12 a Patient Name: WINNIE DELANEY Page [phone] at 0935 All edits/amendments must be made on the electronic document DICTATION DATE: 12/13/18934 SYSTEM SPECIALIST: MARY 12/13/18934 RPT#: [id number] DC DATE:12/12/18 STATUS: DIS IN [facility] [address] [place] [address] END OF REPORT
== END 2018-12-12 14:09 | disposition home or self-care (01) | DRG 871 ==
LOC: D.ER 17:09 → D.MS 23:51 → D.EDHOLD 23:51 → OBSVTIME 23:51 → D.MS 23:57
PROVIDERS: Family Medicine; ADMIT Internal Medicine Nephrology
DX: A41.9 Sepsis, unspecified organism (principal); N17.0 Acute kidney failure with tubular necrosis; N20.1 Calculus of ureter; N39.0 Urinary tract infection, site not specified; N04.9 Nephrotic syndrome with unspecified morphologic changes; I10 Essential (primary) hypertension; E66.9 Obesity, unspecified; Z68.36 Body mass index [BMI] 36.0-36.9, adult; D50.9 Iron deficiency anemia, unspecified; Z86.711 Personal history of pulmonary embolism; Z79.01 Long term (current) use of anticoagulants